=== PATIENT | male | born 1955 | race Hispanic/Latino ===

== ENCOUNTER 2024-02-05 20:28 | Emergency (ER) | payer MEDICARE ==
[~2024-02-05] VITALS: Ht 162.6 cm; Wt 74.8 kg
[2024-02-05 21:04] LABS: BASOPHILS # (AUTO) 0.03 K/uL (0.00-0.20); BASOPHILS % (AUTO) 0.5 % (0.0-5.0); EOSINOPHILS # (AUTO) 0.02 K/uL (0.00-0.70); EOSINOPHILS % (AUTO) 0.3 % (0.0-8.0); HEMATOCRIT 39.5 % (42-54); IMMATURE GRANULOCYTE ABSOLUTE 0.01 K/uL (0-1); LYMPHOCYTES # (AUTO) 3.2 K/uL (1.0-4.8); LYMPHOCYTES % (AUTO) 48.2 % (21.0-51.0); MEAN CORPUSCULAR HGB CONC 35.4 g/dL (32.0-36.0); MEAN CORPUSCULAR VOLUME 90.4 fL (79-99); MONOCYTES # (AUTO) 0.4 K/uL (0.1-1.0); MONOCYTES % (AUTO) 6.7 % (3.0-13.0); NEUTROPHILS # (AUTO) 2.9 K/uL (1.8-7.7); NEUTROPHILS % (AUTO) 44.1 % (40.0-77.0); PLATELET COUNT (AUTO) 128 K/uL (130-400); RED BLOOD CELL COUNT(AUTO) 4.37 MIL/uL (4.50-6.20); RED CELL DISTRIBUTION WIDTH 13.4 % (11.0-15.5); WHITE BLOOD COUNT (AUTO) 6.6 K/uL (4.8-10.8)
--- NOTE | 2024-02-05 21:08 | NUR ---
PATIENT HIGH FALL RISK. PATIENT UNDER INFLUENCE OF ALCOHOL ALREADY FELL AT RESIDENCE. ATTENDING PROVIDER MADE AWARE AND 1:1 SITTER ORDER OBTAINED.
[2024-02-05 21:10] LABS: CREATININE 0.5 mg/dL (0.5-1.3); POTASSIUM 3.5 mmol/L (3.5-5.1)
--- NOTE | 2024-02-05 21:12 | NUR ---
PATIENT MOVED TO ER ROOM 20 NEAR NURSES STATION SO PATIENT CAN BE IN DIRECT LINE OF SIGHT OF NURSE.
[2024-02-05 21:13] LABS: INR 1.23 (0.85-1.15); PROTHROMBIN TIME 13.1 SEC (9.6-11.6)
[2024-02-05 21:14] LABS: PARTIAL THROMBOPLASTIN TIME 30.4 SEC (26.3-35.5)
[2024-02-05 21:19] LABS: MAGNESIUM 1.9 mg/dL (1.80-2.40)
--- NOTE | 2024-02-05 21:22 | HMCIMG ---
INDICATION: fall TECHNIQUE: CHEST 1VW COMPARISON: None FINDINGS/IMPRESSION: No acute consolidation or pleural effusion. Cardiac silhouette is within normal limits. Mild degenerative changes of the spine. The visualized upper abdomen appears unremarkable.
[2024-02-05 21:45] LABS: B-TYPE NATRIURETIC PEPTIDE 127 pg/mL (0-100)
[2024-02-05] MEDS: 0.9%NACL 1000ML 1,000 ML IV ONE (21:52)
--- NOTE | 2024-02-05 22:07 | NUR ---
PATIENT FAMILY AT BEDSIDE. PATIENT FAMILY MEMBER NAME IS KATELYNN AND NUMBER IS [phone]
--- NOTE | 2024-02-05 22:43 | HMCIMG ---
CT HEAD/BRAIN W/O CONTRAST HISTORY: Status post fall COMPARISON: None TECHNIQUE: Multiple sequential axial images of the head were obtained from the base of the skull through vertex. Patient was not given contrast through intravenous route. FINDINGS: The ventricles and extraventricular CSF spaces are dilated consistent with cerebral atrophy. Nonspecific white matter changes seen. There is no midline shift, mass effect or herniation. No acute intracranial bleed is seen. Visualized portion of the paranasal sinuses are grossly within normal limits. IMPRESSION: 1. No acute intracranial bleed is seen. 2. Atrophy with white matter changes. CT was performed with one or more following dose reduction techniques: automated exposure control, adjustment of the mA and kv according to patient's size, or use of a iterative reconstruction technique.
--- NOTE | 2024-02-05 22:45 | HMCIMG ---
CT CERVICAL SPINE W/O CONTRAST HISTORY: Status post fall COMPARISON: None TECHNIQUE: Multiple sequential axial images of the cervical spine were obtained including post processing sagittal and coronal reconstruction images. Patient was not given contrast through intravenous route. FINDINGS: There is reversal of normal lordotic cervical curvature which may be related to muscle spasm or positioning. There are degenerative changes in cervical spine spondylosis. Disc space narrowing are seen at C4-5, C5-6, C6-7 and C7-T1 levels. There are anterior subluxation of C3 over C4 and C4 over C5. There is no loss of vertebral height. Evaluation for disc and cord pathology is limited with CT study. No evidence of fracture or dislocation is seen. IMPRESSION: 1. No fracture is seen. DJD with cervical spine spondylosis. CT was performed with one or more following dose reduction techniques: automated exposure control, adjustment of the mA and kv according to patient's size, or use of a iterative reconstruction technique.
[2024-02-05] MEDS: teTANUS/diphthERIA TOXOID [ADULT] 0.5 ML VIAL IM ONE (23:13)
[2024-02-05] MEDS: DIPH,PERTUSS(ACELL),TET VAC/PF 0.5 ML VIAL IM ONE (23:14)
--- NOTE | 2024-02-05 23:39 | NUR ---
TRANSFER CALL PLACED TO [facility] TO INITIATE TRANSFER OF TRAUMA PT. FOR NEUROSURGERY SERVICES
[2024-02-06 00:03] VITALS: TEMP 98.8
--- NOTE | 2024-02-06 00:07 | ERN ---
General Chief Complaint: Mechanical Fall Stated Complaint: LACERATION TO BACK OF HEAD, -LOC, -ANTICOAGULANTS Time Seen by MD: 20:34 Time Seen by Midlevel: 20:34 Source: patient, EMS History of Present Illness Initial Comments Patient is a 68-year-old male being brought in by EMS for evaluation following a fall. According to the patient he was drinking alcohol today. He went to take a shower when his heard a loud thump and patient was found on the floor. According to EMS there is a large laceration to the right aspect of the posterior scalp. According to his there was no loss of consciousness ho wever the fall was unwitnessed. Patient is not on any blood thinners. Per EMS, patient was found to be in atrial fibrillation. Patients specifically denies having a history of atrial fibrillation. He denies taking any medications. On arrival he was reporting pain over the laceration and neck pain. Denies any other symptoms. Allergies: Coded Allergies: No Known Drug Allergies (Unverified Allergy, Unknown, 02/05/24) Past Medical History Past Medical History: No Pertinent History Past Surgical History: None ROS Dictation CONSTITUTIONAL: Negative except for HPI HEAD/FACE: Negative except for HPI EENT: Negative except for HPI RESPIRATORY: Negative except for HPI GASTROINTESTINAL/ABDOMINAL: Negative except for HPI GENITOURINARY: Negative except for HPI MUSCULOSKELETAL: Negative except for HPI INTEGUMENTARY: Negative except for HPI NEUROLOGICAL/PSYCH: Negative except for HPI HEMATOLOGIC/LYMPHATIC: Negative except for HPI All Systems Negative, Except as noted above. 13 point review of systems assessed and all negative except for above. Physical Exam Physical Exam Dictation Vital Signs reviewed General Appearance: Alert, oriented x 3, no acute distress, well developed, nourished. Head and Face: 4 cm laceration to the posterior aspect of the scalp, minimal active bleeding Eyes: PERRL, pink conjunctivas, eyelid no trauma, anterior chamber with arcus senilis. Ears: Pinnas intact and no signs of trauma or erythema ear canals clear and no discharge TM no erythema Nose: No discharge, no bleeding. Oropharynx: Mouth normal, tongue pink, pharynx clear,no erythema, tonsils no exudates, no abscesses noted, mucous membrane moist Neck: C-collar in place Breast:Deferred Chest:No tenderness, no crepitus, no paradoxical movement, no retractions Lungs:Clear, well-ventilated, symmetric, no rales, no wheezing, no rhonchi, no stridor, good breath sounds bilaterally Heart: Regular rate, regular rhythm, no murmur, no gallops Vascular: no peripheral edema, Abdomen: Soft, positive bowel sounds, nondistended, no guarding, nontender, no rebound, no masses no hepatomegaly, no splenomegaly, no Gibson's sign, no hernias. Rectal: Deferred Genital: Deferred Neurological: Normal speech, motor function intact, sensory function intact Musculoskeletal: Neck nontender, full range of motion, back nontender, full range of motion, Extremities: nontender, full range of motion Skin: Color pink, dry, no turgor, no rash, no lacerations, no abrasions, no contusions. Lymphatic: Deferred Results Laboratory and Microbiology Lab and Micro Result Laboratory Tests Test 02/05/24 20:51 White Blood Count 6.6 K/uL (4.8-10.8) Red Blood Count 4.37 MIL/uL (4.50-6.20) L Hemoglobin 14.0 g/dL (14.0-18.0) Hematocrit 39.5 % (42-54) L Mean Corpuscular Volume 90.4 fL (79-99) Mean Corpuscular Hemoglobin 32.0 pg (27.0-33.0) Mean Corpuscular Hemoglobin Concent 35.4 g/dL (32.0-36.0) Red Cell Distribution Width 13.4 % (11.0-15.5) Platelet Count 128 K/uL (130-400) L Mean Platelet Volume 9.7 fL (7.5-10.5) Immature Granulocyte % (Auto) 0.2 % (0-1) Neutrophils (%) (Auto) 44.1 % (40.0-77.0) Lymphocytes (%) (Auto) 48.2 % (21.0-51.0) Monocytes (%) (Auto) 6.7 % (3.0-13.0) Eosinophils (%) (Auto) 0.3 % (0.0-8.0) Basophils (%) (Auto) 0.5 % (0.0-5.0) Neutrophils # (Auto) 2.9 K/uL (1.8-7.7) Lymphocytes # (Auto) 3.2 K/uL (1.0-4.8) Monocytes # (Auto) 0.4 K/uL (0.1-1.0) Eosinophils # (Auto) 0.02 K/uL (0.00-0.70) Basophils # (Auto) 0.03 K/uL (0.00-0.20) Absolute Immature Granulocyte (auto 0.01 K/uL (0-1) Nucleated Red Blood Cells 0.0 % (0.0-0.19) Prothrombin Time 13.1 SEC (9.6-11.6) H Prothromb Time International Ratio 1.23 (0.85-1.15) H Activated Partial Thromboplast Time 30.4 SEC (26.3-35.5) Sodium Level 125 mmol/L (136-145) L Potassium Level 3.5 mmol/L (3.5-5.1) Chloride Level 90 mmol/L (101-111) *L Carbon Dioxide Level 27 mmol/L (21-32) Blood Urea Nitrogen 4 mg/dL (7-18) L Creatinine 0.5 mg/dL (0.5-1.3) Glomerular Filtration Rate Calc 112 mL/min (>90) Random Glucose 95 mg/dL (70-105) Total Calcium 8.6 mg/dL (8.5-10.1) Magnesium Level 1.90 mg/dL (1.80-2.40) Total Creatine Kinase 144 U/L (21-232) Troponin I High Sensitivity 5 ng/L (4-75) B-Type Natriuretic Peptide 127 pg/mL (0-100) H Serum Alcohol 339 mg/dL (0-10) H Labs Reviewed?: Yes MDM MDM: Differential diagnosis: Intracranial bleed, scalp laceration, skull fracture Rationale: Tests considered and ordered secondary to shared decision making include: Previous outside records reviewed: Old ER visits. Risk of complication and/or morbidity or mortality of patient management: None Medications-Per medication reconciliation Need for hospitalization: Patient does meet criteria for hospitalization. Need for emergency major/minor surgery: No There are no social concerns with this patient. Prescription drug management Prescriptions will include symptomatic care Patient's prior external medical records from other ER visits were reviewed by me as indicated. Prior testing and results from previous visits were reviewed. Prior tests were taken into account with medical decision making and resource utilization, independent historian/historians were used to obtain complete medical history. I independently interpreted the test that were performed, results were reviewed by me and considered findings on radiology if ordered. Medical management and examination interpretation discussions were had by me with other qualified healthcare professionals as indicated for the patient's care. ED Course Orders Procedure Category Date Status Time 12 Lead Ekg Tracing- EKG 02/05/24 Logged Technical 20:38 B-Type Natriuretic LAB 02/05/24 Complete Peptide 20:38 Basic Metabolic Panel LAB 02/05/24 Complete 20:38 Cbc With Differential LAB 02/05/24 Complete 20:38 Creatine Kinase, Total LAB 02/05/24 Complete 20:38 Magnesium LAB 02/05/24 Complete 20:38 Troponin I High LAB 02/05/24 Complete Sensitivity 20:38 Pt And Ptt LAB 02/05/24 Complete 20:38 Ct Cervical Spine W/O CT 02/05/24 Resulted Contrast 20:38 Ct Head/Brain W/O CT 02/05/24 Resulted Contrast 20:38 Chest 1vw RAD 02/05/24 Resulted 20:38 Alcohol, Blood LAB 02/05/24 Complete 20:38 One To One Sitter CPOE 02/05/24 Transmitted 21:07 0.9%Nacl 1000ml (Ns PHA 02/05/24 Complete 1000ml) 21:30 Diph,Pertuss(Acell),Tet PHA 02/05/24 Complete Vac/Pf (Tdap) 23:30 Tetanus,Diphtheria PHA 02/05/24 Complete Tox [Adult] (Diphther 23:30 Current Medications Medications (Trade) Dose Ordered Sig/Ga Route PRN Reason Start Time Stop Time Status Last Admin Dose Admin Diphtheria/ Tetanus/Acell Pertussis (Tdap) 0.5 ml ONCE ONCE IM 02/05/24 23:30 02/05/24 23:31 DC Sodium Chloride 1,000 ml @ 0 mls/hr ONCE ONCE IV 02/05/24 21:30 02/05/24 21:31 DC 02/05/24 21:52 Tetanus/ Diphtheria Toxoids Adsorbed (DiphthERIA-teTANUS TOXOID [ADULT]/ DECAVAC) 0.5 ml ONCE ONCE IM 02/05/24 23:30 02/05/24 23:31 DC 02/05/24 23:13 Vital Signs Date Time Temp Pulse Resp B/P (MAP) Pulse Ox O2 Delivery O2 Flow Rate FiO2 02/06/24 01:00 77 14 102/67 100 Room Air* 0 21 02/06/24 00:03 98.8 80 19 106/68 100 Room Air* 0 21 02/05/24 23:03 74 12 100/54 100 Room Air* 0 21 02/05/24 21:58 73 18 104/70 95 Room Air* 0 21 02/05/24 20:31 97.9 87 16 115/55 96 Room Air 0 02/05/24 20:30 97.9 87 16 115/55 96 Room Air* 0 21 12:21 AM: Spoke with neurosurgeon Dr. Mahajan who agrees to consult on the patient. Dr. Mahajan was advised that patient is on a soft collar and states that should be okay. 12:23 AM: Spoke with trauma surgeon over at [facility] who agrees to evalua te the patient once he arrives to the ER. Recommends hard rigid collar instead of the soft collar. 12:35 AM: Spoke with ER doctor over at [facility] who agrees to see the patient in the ER. Recommends hard rigid collar. At this time patient will be switched over to a hard C-collar. [address] [address] IMAGING REPORT Signed PATIENT: RHINA HOOVER MR#: [id number] : 1955 SEX: M AGE: 68 LOCATION: [facility] ORDER 39 STATUS: [facility] ER JOSEPH BEREA REPORT#: [id number] SERVICE 37 REASON: fall/head injury ORDERING PHYSICIAN: LURDES SAENZ PROCEDURE: HEAD WO - CT HEAD/BRAIN W/O CONTRAST CT HEAD/BRAIN W/O CONTRAST HISTORY: Status post fall COMPARISON: None TECHNIQUE: Multiple sequential axial images of the head were obtained from the base of the skull through vertex. Patient was not given contrast through intravenous route. FINDINGS: The ventricles and extraventricular CSF spaces are dilated consistent with cerebral atrophy. Nonspecific white matter changes seen. There is no midline shift, mass effect or herniation. No acute intracranial bleed is seen. Visualized portion of the paranasal sinuses are grossly within normal limits. IMPRESSION: 1. No acute intracranial bleed is seen. 2. Atrophy with white matter changes. CT was performed with one or more following dose reduction techniques: automated exposure control, adjustment of the mA and kv according to patient's size, or use of a iterative reconstruction technique. DICTATED BY: YAMILET CARDENAS MD DATE: 02/05/242238 ELECTRONICALLY SIGNED BY: YAMILET CARDENAS MD DATE: 02/05/242242 [address] [place] [id number] IMAG[place] REPORT Signed PATIENT: RHINA HOOVER MR#: [id number] : 1955 SEX: M AGE: 68 LOCATION: ED ORDER 39 STATUS: REG ER [facility] REPORT#: [id number] SERVICE 37 REASON: fall ORDERING PHYSICIAN: LURDES SAENZ PROCEDURE: CXR1VW - CHEST 1VW INDICATION: fall TECHNIQUE: CHEST 1VW COMPARISON: None FINDINGS/IMPRESSION: No acute consolidation or pleural effusion. Cardiac silhouette is within normal limits. Mild degenerative changes of the spine. The visualized upper abdomen appears unremarkable. DICTATED BY: ALEXUS CASTANEDA MD DATE: 02/05/242119 ELECTRONICALLY SIGNED BY: ALEXUS CASTANEDA MD DATE: 02/05/242121 [place] [address] [address] IMAGING REPORT Signed PATIENT: RHINA HOOVER MR#: [id number] : 1955 SEX: M AGE: 68 LOCATION: [facility]H ORDER 39 STATUS: REG ER REPORT#: [id number] SERVICE 37 REASON: fall/head injury ORDERING PHYSICIAN: LURDES SAENZ PROCEDURE: C SPIN WO - CT CERVICAL SPINE W/O CONTRAST CT CERVICAL SPINE W/O CONTRAST HISTORY: Status post fall COMPARISON: None TECHNIQUE: Multiple sequential axial images of the cervical spine were obtained including post processing sagittal and coronal reconstruction images. Patient was not given contrast through intravenous route. FINDINGS: There is reversal of normal lordotic cervical curvature which may be related to muscle spasm or positioning. There are degenerative changes in cervical spine spondylosis. Disc space narrowing are seen at C4-5, C5-6, C6-7 and C7-T1 levels. There are anterior subluxation of C3 over C4 and C4 over C5. There is no loss of vertebral height. Evaluation for disc and cord pathology is limited with CT study. No evidence of fracture or dislocation is seen. IMPRESSION: 1. No fracture is seen. DJD with cervical spine spondylosis. CT was performed with one or more following dose reduction techniques: automated exposure control, adjustment of the mA and kv according to patient's size, or use of a iterative reconstruction technique. DICTATED BY: YAMILET CARDENAS MD DATE: 02/05/242240 ELECTRONICALLY SIGNED BY: YAMILET CARDENAS MD DATE: 02/05/242244 Procedure Dictation Procedure Name: Laceration Repair Indication: Reduce risk of infection Location: Linear laceration measuring 4 cm to the Right posterior scalp Pre-Procedure Diagnosis: Laceration Post-Procedure Diagnosis: Repaired Laceration Informed consent was obtained before procedure started. PROCEDURE: The appropriate timeout was taken. The area was prepped and draped in the usual sterile fashion. The wound was copiously irrigated. Six douglas were placed. Estimated blood loss was less than 0.5 mL. A dressing was applied to the area and anticipatory guidance, as well as standard post-procedure care, was explained. Return precautions are given. The patient tolerated the procedure well without complications. Follow-up visit set for suture removal and evaluation of the laceration. DX & DISP Disposition: Transfer ([facility]) Departure Impression: Primary Impression: Fall Additional Impressions: Scalp laceration, Alcohol intoxication, Hyponatremia, New onset atrial fibrillation, Closed subluxation of multiple cervical vertebrae Condition: Stable Referrals: SELF,REFERRAL (PCP) I have reviewed the case, and I agree with, Diagnosis and Plan I performed the substantive portion of the visit. I have reviewed and personally made and approve the management plan that is documented in the note b y myself or the CRISTAL. I acknowledge for responsibility for the patient's management plan. LURDES SAENZ Feb 06, 2024 00:07
--- NOTE | 2024-02-06 00:47 | NUR ---
TRANSFER PT. ACCEPTED BY GABBY MORRIS MD. [place] 0025 [place] [facility] [place] AT THIS TIMETO ER. REPORT: [id number]
[2024-02-06 01:00] VITALS: BP 102/67; PULSE 77; RESP 14; O2SAT 100
--- NOTE | 2024-02-06 01:01 | NUR ---
ENDORSED CARE TO MAX RN AT THIS TIME.
--- NOTE | 2024-02-06 01:01 | NUR ---
[facility] CALLED FOR TRANSPORTATION OF MONITORED, TRAUMA PATIENT
--- NOTE | 2024-02-06 01:16 | NUR ---
REPORT GIVEN TO RN AT [facility] [place] [facility] AT THIS TIME.
[2024-02-06] MEDS: morPHINE 2 MG SYG IVP ONE (01:49)
[2024-02-06] MEDS: ondanSETRON 4MG INJ IVP ONE (01:49)
--- NOTE | 2024-02-07 07:39 | EKG ---
[facility] Test Date: 2024-02-05 Test Time: 20:56:54 Pat Name: RHINA HOOVER Department: ED Room: Gender: M Peer Financial Counselor: [id number] : 1955 Requested By: LURDES SAENZ Order Number: [id number] Reading MD: Hyacinth Lynne Measurements Intervals [place] Rate: 72 P: 0 [place]: 0 QRS: -45 QRSD: 140 T: 7 QT: 410 QTc: 450 Interpretive Statements Atrial fibrillation RBBB and LAFB No previous ECG available for comparison Electronically Signed On 02-07-2024 10:36:35 [employer] OPERATOR by Hyacinth Lynne Please click the below link to view image of tracing.
== END 2024-02-06 03:15 | disposition short-term general hospital (02) ==
LOC: EDH 20:28
DX: S01.01XA Laceration without foreign body of scalp, initial encounter (principal); S13.100A Subluxation of unspecified cervical vertebrae, initial encounter; E87.1 Hypo-osmolality and hyponatremia; F10.129 Alcohol abuse with intoxication, unspecified; I48.91 Unspecified atrial fibrillation; W18.2XXA Fall in (into) shower or empty bathtub, initial encounter; Y93.89 Activity, other specified; Y92.89 Other specified places as the place of occurrence of the external cause; Y99.8 Other external cause status
CPT/HCPCS: 99285; 70450; 71045; 96361; 93005; 82550; 83735; 84484; 80048; 83880; 85025; 85610; 85730; 36415; 90715; 72125; 90471; 12002; 96374; 96375; J7030; J2270; J2405